=== PATIENT | female | born 1990 | race Caucasian/White ===

== ENCOUNTER 2022-11-30 11:12 | Emergency (ER) | payer OTHER, SELFPAY ==
[2022-11-30 11:28] VITALS: BP 142/88; PULSE 120; RESP 18; TEMP 36.5; O2SAT 97; BMI 40.2
--- NOTE | 2022-11-30 12:51 | ED_ITS ---
HPI - Wound/Laceration General Chief Complaint: Laceration/Wound Stated Complaint: L index finger lac Time Seen by Provider: 11/30/22 11:42 History of Present Illness HPI narrative: This 32-year-old female comes in with a laceration to her left index finger. She was using a sharp knife to cut a bagel and the knife slipped causing injury to the distal portion of her left index finger including part of the fingernail. Her last tetanus vaccination was in 2011, 11 years ago. She did apply a couple bandages with some increased pressure. There is no active bleeding at the time that I visited her. Related Data Home Medications Medication Instructions Recorded Confirmed No Known Home Medications 11/30/22 11/30/22 Allergies Allergy/AdvReac Type Severity Reaction Status Date / Time cefaclor [From [facility]] Allergy Verified 11/30/22 11:28 Penicillins Allergy Verified 11/30/22 11:28 Review of Systems Status of ROS: Reports: 10 or more systems reviewed and unremarkable except as noted in History and below Narrative: Constitutional: No fevers, no weight gain or loss. Eyes: No discharge. No vision changes. HENT: No congestion, no sore throat, no ear pain. Cardiovascular: No chest pain, no palpitations. Respiratory: No shortness of breath, no wheezes, no cough. Gastrointestinal: No abdominal pain, no vomiting, no diarrhea. Genitourinary: No dysuria, no hematuria. Musculoskeletal: Normal range of motion. Skin: No rashes, no pruritis. Finger laceration as described above. Neurological: No dizziness, weakness, sensory change, speech change. Endo/Heme/Allergies: No bruising or bleeding. No polydipsia. Pysch: no suicidality, no anxiety, no insomnia. All other systems reviewed and are negative. [facility] Social History Smoking Status: Never smoker Do you use any of these nicotine containing products: None Second hand tobacco smoke exposure: No How often do you have a drink containing alcohol: never How often do you have six or more drinks on one occasion: Never AUDIT-C Alcohol total score: 0 Non-prescribed substance use: denies use Exam Narrative: Exam Narrative: Constitutional: Well-developed, well-nourished, no acute distress. HEENT: Normocephalic, atraumatic. Neck: Normal range of motion. Nontender. Supple. Heart: Intact distal pulses. Lungs: No chest discomfort. No wheezes, rhonchi, or rales. Abdomen: Nontender. Back: Normal range of motion. Extremities: Normal range of motion. Distal portion of the left index finger has a 1 cm linear laceration at the very tip of the finger. This does include a portion of the fingernail. Skin: Intact. No rash. Warm. No erythema or pallor. Neurologic: No altered sensation. No weakness. Alert and oriented. Psychiatric: No suicidality. No anxiety or depression. No insomnia. Nursing notes and vitals signs are reviewed. Const: Vital Signs, click to edit/add: Vital Signs - 24 hr 11/30/22 11:28 Temperature 97.7 F Pulse Rate [Right Pulse Oximeter] 120 H Respiratory Rate 18 Blood Pressure [Ri ght Upper Arm] 142/88 H Pulse Oximetry 97 Oxygen Delivery Me thod Room Air Course Vital Signs Vital signs: Initial Vital Signs Temperature 97.7 F 11/30/22 11:28 Temperature Source Temporal Artery Scan 11/30/22 11:28 Pulse Rate 120 H 11/30/22 11:28 Respiratory Rate 18 11/30/22 11:28 Blood Pressure 142/88 H 11/30/22 11:28 Blood Pressure Mean 106 H 11/30/22 11:28 Blood Pressure Position Sitting 11/30/22 11:28 Pulse Oximetry 97 11/30/22 11:28 Oxygen Delivery Method Room Air 11/30/22 11:28 Vital Signs Temperature 97.7 F 11/30/22 11:28 Pulse Rate 120 H 11/30/22 11:28 Respiratory Rate 18 11/30/22 11:28 Blood Pressure 142/88 H 11/30/22 11:28 Pulse Oximetry 97 11/30/22 11:28 Oxygen Delivery Method Room Air 11/30/22 11:28 Temperature 97.7 F 11/30/22 11:28 Pulse Rate 120 H 11/30/22 11:28 Respiratory Rate 18 11/30/22 11:28 Blood Pressure 142/88 H 11/30/22 11:28 Pulse Oximetry 97 11/30/22 11:28 Oxygen Delivery Method Room Air 11/30/22 11:28 MDM - Wound/Laceration MDM Narrative Medical decision making narrative: This patient has a laceration on the distal portion of the left index finger measuring about 1 cm in length. The skin edges and the fingernail that is partially injured are all lying in very good position. I did clean the wound and applied Dermabond to strength in the wound edges. The patient did receive a tetanus vaccination. 2 Band-Aids were applied to this wound and instructions for wound care are also provided. Discharge Plan Discharge Clinical Impression: Laceration Patient Disposition: Home, Self-Care Condition: Improved Additional Instructions: Keep wound clean and dry. Increase activity as tolerated. Follow up with MD return if worsening. Prescriptions: No Action No Known Home Medications Stand Alone Forms: [facility] [employer] Info Instructions
[2022-11-30] MEDS: TETANUS/DIPHTH/PERTUSSIS 0.5 ML SYRINGE IM (13:01)
== END 2022-11-30 13:06 | disposition home or self-care (01) ==
LOC: ED 13:01
PROVIDERS: Emergency Provider Emergency Medicine Emergency Medical Services
DX: S61.211A Laceration without foreign body of left index finger without damage to nail, initial encounter (principal); W26.0XXA Contact with knife, initial encounter
CPT/HCPCS: 90471; 90715; 99282; 99283; 99284